=== PATIENT | female | born 1950 | race Caucasian/White ===

== ENCOUNTER 2020-12-15 12:55 | Emergency (ER) | payer MEDICARE, MEDICAID ==
[~2020-12-15] VITALS: Ht 162.6 cm; Wt 60.8 kg
[2020-12-15 12:55] VITALS: BP 131/92
[2020-12-15 13:59] LABS: Basophils # (auto) 0.1 10 ^3/uL (0-0.2); Basophils % (auto) 0.4 % (0.0-2.0); Eosinophils # (auto) 0.1 10 ^3/uL (0-0.8); Eosinophils % (auto) 0.7 % (0.0-7.0); Hematocrit 40.3 % (36.0-46.0); Hemoglobin 13.5 g/dL (12.2-16.2); Lymphocytes # (auto) 2.1 10 ^3/uL (0.4-5.4); Lymphocytes % (auto) 15.7 % (10.0-50.0); Mean Corpuscular Hemoglobin 29.1 pg (28.0-32.0); Mean Corpuscular Hgb Conc. 33.4 g/dL (32.0-36.0); Mean Corpuscular Volume 87.1 fL (80.0-100.0); Monocytes # (auto) 0.9 10 ^3/uL (0-1.3); Neutrophils # (auto) 10.1 10 ^3/uL (1.6-8.6); Neutrophils % (auto) 76.2 % (37.0-80.0); Nucleated Red Blood Cells % 0.1 %; Platelet Count (auto) 267 10^3/uL (140-450); Red Blood Cells 4.62 10^6/uL (4.0-5.20); White Blood Cell 13.3 10^3/uL (4.4-10.8)
[2020-12-15 14:12] LABS: Albumin 3.8 g/dL (3.4-5.0); Amylase 61 U/L (25-115); Anion Gap 9 (5-15); Blood Urea Nitrogen 16 mg/dL (7-18); Calcium 9.7 mg/dL (8.5-10.1); Carbon Dioxide 26 mmol/L (21-32); Chloride 100 mmol/L (98-107); Glucose 88 mg/dL (74-106); Lipase 165 U/L (73-393); Magnesium 2.6 mg/dL (1.6-2.6); Potassium 3.9 mmol/L (3.5-5.1); Sodium 135 mmol/L (136-145)
[2020-12-15 14:14] LABS: INR 0.99 (0.9-1.15); Partial Thromboplastin Time 28.6 sec (23.0-31.2)
[2020-12-15 14:18] LABS: Alanine Aminotransferase 34 U/L (13-56); Alkaline Phosphatase 127 U/L (45-117); Aspartate Aminotransferase 26 U/L (15-37); Bilirubin, Total 2.1 mg/dL (0.2-1.0); GFR African American 62 mL/min; GFR Non-African American 52 mL/min; Total Protein 8.7 g/dL (6.4-8.2)
[2020-12-15 14:23] LABS: BUN/Creatinine Ratio 14.4
== END 2020-12-15 16:55 | disposition left against medical advice (07) ==
LOC: ER 12:55
DX: K57.32 Diverticulitis of large intestine without perforation or abscess without bleeding (principal)
CPT/HCPCS: 36415; 71046; 74176; 76705; 80053; 82150; 83690; 83735; 84484; 85025; 85610; 85730; 93005